=== PATIENT | male | born 1995 | race Two or more races ===

== ENCOUNTER 2024-08-18 16:26 | Emergency (ER) | payer OTHER ==
[~2024-08-18] VITALS: Ht 170.2 cm; Wt 62.9 kg
--- NOTE | 2024-08-18 16:59 | ED.PDOC ---
Musculoskeletal HPI Comments 28 year old presents for possible fracture to the left clavicle. Onset 2 days ago after a skateboarding accident. Pain rated as moderate. Pain with abduction Denies loss of sensation to the affected extremity Chief Complaint: Fall Injury Time Seen by MD: 16:50 Reviewed Notes: Nurses Notes, Medications, Allergies Home Meds Active Scripts Ibuprofen Micronized (Ibuprofen) 800 Mg Tab, 800 MG PO TIDWM for 14 Days, #42 TAB 0 Refills Prov:MISSY VALDIVIA MANAGER TREASURY 08/18/24 Information Source: Patient Mode of Arrival: Ambulatory Past Medical History PAST MEDICAL HISTORY: Denies Surgical History: Denies all surgeries All Other Systems: Reviewed and Negative (Per HPI) Physical Exam General Appearance: No Apparent Distress, Normal HEENT: Normal ENT Inspection, Pharynx Normal, TMs Normal Neck: Full Range of Motion, Non-Tender, Normal, Normal Inspection Respiratory: Chest Non-Tender, Lungs Clear, No Accessory Muscle Use, No Respiratory Distress, Normal Breath Sounds Cardiovascular: No Edema, No JVD, No Murmur, No Gallop, Normal Peripheral Pulses, Regular Rate/Rhythm Breast Exam: Deferred Gastrointestinal: No Organomegaly, Non Tender, No Pulsatile Mass, Normal Bowel Sounds, Soft Genitalia: Deferred Pelvic: Deferred Rectal: Deferred Extremities: No calf tenderness, Normal capillary refill, Normal inspection, Normal range of motion, Non-tender, No pedal edema Musculoskeletal : Apperance: Normal Neurologic: Alert, budget counselor II-XII nml as Tested, No Motor Deficits, Normal Affect, Normal Mood, No Sensory Deficits Cerebellar Function: Normal Reflexes: Normal Skin: Dry, Normal Color, Warm Lymphatic: No Adenopathy Was a procedure done? Was a procedure done?: No Images 1 - Visible step-off near the mid clavicle. No open wounds. No ecchymosis. Mild tenderness to palpation. No tenting Differential Diagnosis EXT Differential Diagnosis: Fracture X-Ray, Labs, Meds, VS Vital Signs Date Time Temp Pulse Resp B/P (MAP) Pulse Ox O2 Delivery O2 Flow Rate FiO2 08/18/24 17:12 98.6 80 18 130/80 (97) 100 98.6 08/18/24 17:12 80 18 100 Room Air 08/18/24 16:37 98.6 82 16 131/81 (98) 100 PATIENT: MCKINLEYKASHIF: [id number]: [id number] : 1995 LOC: ER ROOM / BED: / AGE / SEX: 28 / M ADM STATUS: REG ER SERVICE 57 ORDERING PHYSICIAN: MISSY VALDIVIA NP PROCEDURE(s): LSHD2 - L SHOULDER 2+ VIEW XRAY REASON: fall ORDER NUMBER(s): [id number], ACCESSION NUMBER(s): [id number] CLINICAL INDICATION: trauma, pain fall TECHNIQUE: XY L SHOULDER 2+ VIEW XRAY, XY L CLAVICLE COMPLETE XRAY Comparison: None FINDINGS/IMPRESSION: : Displaced fracture of the mid clavicle. No shoulder joint dislocation. ATED BY: ANDREW AGUIRRE MD DICTATED DATE/TIME: 08/18/241730 SIGNED BY: ANDREW AGUIRRE MD SIGNED DATE/TIME: 08/18/241730 CC: X-Ray, Labs, Meds, VS Comment Displaced fracture of the mid clavicle. Prior to discharge I consulted with Dr. Newman and was advised patient may be discharged and followed up as an outpatient Patient was given a sling ibuprofen and advised to follow up with ortho and PCP Return precautions discussed Time of 1ST Reevaluation: 17:30 Reevaluation 1ST: Improved Patient Education/Counseling: Diagnosis, Treatment Family Education/Counseling: Diagnosis, Treatment Departure 1 Departure Time of Disposition: 17:35 Impression: Primary Impression: Clavicle fracture Qualified Codes: S42.002A - Fracture of unspecified part of left clavicle, initial encounter for closed fracture Disposition: 01 HOME / SELF CARE / HOMELESS Condition: Stable e-Prescriptions Ibuprofen Micronized (Ibuprofen) 800 Mg Tab 800 MG PO TIDWM for 14 Days, #42 TAB 0 Refills Prov: MISSY VALDIVIA NP 08/18/24 Discharged With: Self Critical Care Note Critical Care Time?: No Stability Stability form required: No Heart Score Heart Score: Heart Score Response (Comments) Value History N/A 0 EKG N/A 0 Age N/A 0 Risk Factors N/A 0 Troponin N/A 0 Total 0 MISSY VALDIVIA NP Aug 18, 2024 16:59
[2024-08-18 17:12] VITALS: BP 130/80; PULSE 80; RESP 18; TEMP 98.6; O2SAT 100
[2024-08-18] MEDS ORDERED: IBUP-1455 PO (17:36)
--- NOTE | 2024-08-18 17:36 | DVH ---
CLINICAL INDICATION: trauma, pain fall TECHNIQUE: XY L SHOULDER 2+ VIEW XRAY, XY L CLAVICLE COMPLETE XRAY Comparison: None FINDINGS/IMPRESSION: : Displaced fracture of the mid clavicle. No shoulder joint dislocation.
== END 2024-08-18 17:54 | disposition home or self-care (01) ==
LOC: ER 16:26
DX: S42.022A Displaced fracture of shaft of left clavicle, initial encounter for closed fracture (principal); Z79.899 Other long term (current) drug therapy; V00.131A Fall from skateboard, initial encounter; Y93.51 Activity, roller skating (inline) and skateboarding; Y92.89 Other specified places as the place of occurrence of the external cause; Y99.8 Other external cause status
CPT/HCPCS: 73000; 73030

== ENCOUNTER 2024-08-19 16:43 | Emergency (ER) | payer OTHER ==
[~2024-08-19] VITALS: Ht 170.2 cm; Wt 64.9 kg
[~2024-08-19 16:43] MED LIST: IBUP-1455 PO
--- NOTE | 2024-08-19 18:04 | DVH ---
CHEST RADIOGRAPH Indication: sob Technique: Frontal and lateral view of the chest was obtained Comparison: None FINDINGS: Lines and Tubes: None Lungs: Clear Pleura: No effusion. No pneumothorax. Cardiomediastinal contours: Unremarkable Bones: Displaced fracture distal 3rd left clavicle. IMPRESSION: 1. No evidence of acute disease. 2. Displaced fracture distal 3rd left clavicle
--- NOTE | 2024-08-19 19:08 | ED.PDOC ---
History of Present Illness HPI Comments 28-year-old male patient was recently discharged from [facility] ED with diagnosis of clavicle fracture on 08/18/2024 presented with complaints of shortness of breath. Patient was discharged on shoulder sling and pain medications but left-sided clavicular fracture, which she mentioned happened after he fell from the skateboard and hit his anterior part of the chest to the bars. Patient mentioned that he had some shortness of breath that was on and off and came to the [facility] ED for further evaluation. He also mentioned associated left-sided lower chest pain that is mild, only present on deep inspiration and mentioned about a bruise in the same area. He denied any complaints of nausea, vomiting, abdominal pain, constipation, melena, hematemesis, hematochezia, headache, dizziness, Past medical history Clavicular fracture Past surgical history Denied Medication history NSAIDs family history non-contributory Review of system as described in the HPI Examination General Appearance: Alert, Oriented X3, Cooperative, No acute distress, shoulder sling, pt is not in any resp distress and is walking around without any SOB Respiratory: Clear to auscultation, Normal air movement Cardiovascular: Regular rate, Normal S1, Normal S2, bruise present near nipple left side, no chest tenderness Abdominal: soft Extremities: No cyanosis, No edema, Normal pulses, No tenderness/swelling Skin: No rashes, No breakdown Neuro: normal speech and tone Chief Complaint: Shortness of Breath Time Seen by MD: 17:09 Allergies: Coded Allergies: NO KNOWN ALLERGIES (Unverified , 08/19/24) Home Meds Active Scripts Ibuprofen Micronized (Ibuprofen) 800 Mg Tab, 800 MG PO TIDWM for 14 Days, #42 TAB 0 Refills Prov:MISSY VALDIVIA [employer] SENIOR OFFICER 08/18/24 Mode of Arrival: Ambulatory Differential Dx Considerations may include: pneumothorax, pneumonia, PE, anxiety, rib fracture X-Ray, Labs, Meds, VS Vital Signs Date Time Temp Pulse Resp B/P (MAP) Pulse Ox O2 Delivery O2 Flow Rate FiO2 08/19/24 19:35 Room Air* 0 21 08/19/24 19:32 98.1 72 16 115/64 (81) 98 98.1 08/19/24 16:59 98.0 77 18 129/71 (90) 98 Time of 1ST Reevaluation: 18:55 Reevaluation 1ST: Unchanged Patient Education/Counseling: Diagnosis, Treatment Family Education/Counseling: No Family Present Comments Patient presented with the sob. workup was initiated. pt had stable vitals, no resp distress was noted. CXR revealed No evidence of acute disease.Displaced fracture distal 3rd left clavicle, no evidence of pneumothorax. Patient has been observed in the ED adequate length of time to insure improvement/stability. pt was discharged to home and was given discharge instructions. Departure 1 Departure Time of Disposition: 19:08 Impression: Primary Impression: Clavicle fracture Disposition: 01 HOME / SELF CARE / HOMELESS Condition: Stable Additional Instructions: You MUST follow-up with your primary care/family doctor in 1 to 2 days. If you are unable to see your primary care/family doctor, please return to our emergency room for re-assessment and re-evaluation in 1 to 2 days. Return to the emergency room here in our facility or to the nearest ER [facility] if your symptoms change or worsen. Continue with the shoulder Sling and pain medications as prescribed and advised during the last visit. CONSULTATIONS: you should Follow-up for consultation as soon as possible with: Orthopedics in 1-2 days. Discharged With: Self KYLAH SANDOVAL RESIDENT Aug 19, 2024 19:08
[2024-08-19 19:32] VITALS: BP 115/64; PULSE 72; RESP 16; TEMP 98.1; O2SAT 98
== END 2024-08-19 19:37 | disposition home or self-care (01) ==
LOC: ER 16:43
DX: S42.032A Displaced fracture of lateral end of left clavicle, initial encounter for closed fracture (principal); R07.89 Other chest pain; V00.131A Fall from skateboard, initial encounter; Y93.89 Activity, other specified; Y92.89 Other specified places as the place of occurrence of the external cause; Y99.8 Other external cause status
CPT/HCPCS: 71046